=== PATIENT | male | born 1955 | race Caucasian/White ===

== ENCOUNTER → 2018-12-01 | Outpatient (CLI) | payer OTHER ==
[~2018-12-01] VITALS: Ht 188 cm; Wt 95.3 kg
[~2018-12-01] MED LIST: ASPIR 8181 MG PO; ELIQUIS5 MG PO; LIPITOR 20 MG T20 M1 PO; LISINOPRIL5 MG PO; PROTONIX40 M1 PO; TAMBOCOR 100 M100 M1 PO; VENTOLIN HFA 1818 GM INH
--- NOTE | 2018-12-01 08:19 | EKG ---
[address] [address] ELECTROCARDIOGRAM REPORT Name: ERICH ANDRES [facility]: [facility] [id number] Admission: 12/01/18 Attend Phys: Jed Gonzalez MD Discharge: Date of : 59 Report #: [id number] THIS REPORT FOR: //name// [facility] Test Date: 2018-12-01 Test Time: 07:01:23 Pat Name: ERICH ANDRES Department: Room: Gender: Biometry Teacher: RUI : 1955 Requested By: Jed Gonzalez Order Number: [id number] MD: Tee Bradley Measurements Intervals [place] Rate: 71 P: 52 MT: 185 QRS: -7 QRSD: 114 T: 60 QT: 410 QTc: 446 Interpretive Statements Sinus rhythm Normal tracing No previous ECG available for comparison Electronically Signed On 12-01-2018 8:19:39 TECHNICAL SALES SPECIALIST by Tee Bradley [email or web address] <ELECTRONICALLY SIGNED> By: Tee Bradley MD, [facility] 12/01/18 0819 0701 0701 Tee Bradley MD, FACC /EPI
--- NOTE | 2018-12-02 17:08 | PATH ---
[facility] [place] [address] PATHOLOGY RPT PROCEDURE Name: ERICH ANDRES Room #: REG Naima Saez.#: [id number] Admission: 12/01/18 Date of : 59 Discharge: Report #: [id number] Path Case #: [id number] [facility] Accession Number: [id number] . 01 Material submitted: . PART A: BIOPSY OF GASTRIC POLYPS PART B: BIOPSY OF QUESTIONABLE ISLANDS OF BARRETTS DISTAL ESOPHAGUS PART C: BIOPSY OF GE JUNCTION R/O BARRETTS . 01 Clinical history: . 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 02 Diagnosis: A. Polyps, gastric polyps, endoscopic biopsy: - Compatible with fundic gland polyps. - Negative for dysplasia. . B. Gastroesophageal mucosa, questionable islands of Ordonez's distal esophagus, endoscopic biopsy: - Moderate chronic inflammation. - Gastric-type mucosa along with squamous mucosa showing reactive changes. - Negative for intestinal metaplasia or dysplasia. . C. Gastric cardia-type mucosa, GE junction rule out Ordonez's, endoscopic biopsy: - Gastric cardia-type mucosa with marked acute and chronic inflammation. - Negative for Ordonez's metaplasia. - INDEFINITE FOR DYSPLASIA (PLEASE SEE COMMENT). - Mild to moderate chronic inflammation present in the background. LBQ/12/02/2018 . 02 Comment: Focal stratification, increased mitoses and rounded nuclei are identified. There; however, is no definite intestinal metaplasia present. Goblet cells are present consistent with reactive changes. The stratification is likely a reactive change as well. Please correlate clinically. . Dr. Harman Gomez has seen a entry level marketing representative slide of part C and concurs with my diagnosis. (IUV/db; 12/02/2018) . 02 Electronically signed: . Padmini Gonzalez MD, Pathologist NPI- [id number] [place] [address] PATHOLOGY RPT PROCEDURE Name: ERIHC ANDRES Room #: REG [facility].#: [id number] Admission: 12/01/18 Date of : 59 Discharge: Report #: [id number] Path Case #: [id number] . 01 Gross description: . A. The specimen is received in formalin, labeled "Erich Andres, biopsy of gastric polyps" and consists of multiple fragments of soft ayala tissue measuring 1.1 x 0.8 x 0.2 cm in aggregate which are entirely submitted in A1. . B. The specimen is received in formalin, labeled "Erich Andres, biopsy of questionable islands Ordonez's distal esophagus" and consists of 2 fragments of ozuna-ayala tissue measuring 0.4 x 0.3 x 0.1 cm and 0.3 x 0.2 x 0.2 cm. They are entirely submitted in B1. . C. The specimen is received in formalin, labeled "Erich Andres, BX GE junction" and consists of multiple fragments of soft ayala tissue measuring 1.2 x 0.3 x 0.2 cm in aggregate which are entirely submitted in C1. (SDY; 12/01/2018) SYU/SYU . 02 Pathologist provided ICD-10: K31.7, K20.9, K22.710 . 02 CPT . 261721, 229234, 013013 Specimen Comment: A courtesy copy of this report has been sent to Specimen Comment: [phone], , . Specimen Comment: Report sent to , and Performed at: [address] [facility], [place], [place] [id number] MD Kumar Breen MD Phone: [phone] Performed at: [address] [facility] [id number] MD Padmini Gonzalez MD Phone: [phone]
--- NOTE | 2018-12-03 05:38 | P ---
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 He presents today for surveillance examination, with last exam 3 years ago. PREOPERATIVE DIAGNOSES: History of Ordonez's and low-grade dysplasia. POSTOPERATIVE DIAGNOSES: 1. Moderate diffuse antral gastritis. 2. Multiple gastric polyps. 3. Small hiatus hernia, intermittently seen. 4. Questionable islands of Ordonez mucosa, distal esophagus. MEDICATIONS: Deep sedation with propofol per Anesthesia. SPECIMENS: 1. Biopsies of gastric polyps. 2. Biopsies of questionable islands of Ordonez mucosa, distal esophagus. 3. Biopsies of GE junction, rule out persistent Ordonez. ESTIMATED BLOOD LOSS: 3 mL. PROCEDURE: EGD with biopsy. FINDINGS: Prior to propofol sedation, procedure of upper endoscopy was reviewed with the patient as well as potential risks and its complications. He indicates he understands and desires to proceed. DESCRIPTION OF PROCEDURE: With the patient in left lateral decubitus position, the Olympus video endoscope was inserted in the cervical esophagus under direct vision without difficulty. Examination of this organ through its entire length revealed normal esophageal mucosa down to the squamocolumnar junction, a cm or two just above the squamocolumnar junction where 2 punctate possible Ordonez mucosa. These also may be areas of gastric mucosa. They were essentially removed with biopsy forceps. The distal esophagus, in particular the squamocolumnar junction, was carefully inspected with both white light as well as narrow band imaging. The squamocolumnar junction was at the top of the gastric folds. Intermittently, a small 1-2 cm sliding type hiatus hernia was seen. In addition, the mucosa was completely flat without ulcerations, nodules or mass lesions. Multiple biopsies were obtained along the squamocolumnar [address] [address] PROCEDURE REPORT Name: ERICH ANDRES Room #: REG [facility].#: [id number] Admission: 12/01/18 Attend Phys: Jed Gonzalez MD Discharge: Date of : 59 Report #: [id number] junction. The scope was advanced in the stomach, was examined on end view as well as retroflexed views. There was a moderate diffuse gastritis, which had been previously noted. No ulcers or erosions were seen. Upon retroflexion, no mass lesions were seen. However, in the body of the stomach were multiple polyps, some of which were about a centimeter or possibly slightly larger. These may be a result of his chronic use of PPIs. Multiple biopsies were obtained. They did have a typical and benign appearance. Pylorus is unremarkable. Duodenal bulb was unremarkable. Duodenal sweep down to the third portion was unremarkable. At that point, scope was slowly withdrawn and careful circumferential views confirmed the above findings. The patient tolerated the procedure well. CONDITION OF THE PATIENT UPON DISCHARGE: Following the procedure, the patient was drowsy, aroused. He will be discharged home when fully ambulatory. INSTRUCTIONS TO THE PATIENT AND FAMILY AT THE TIME OF DISCHARGE: We will follow up on the pathology. If there is Ordonez and in particular, if there is dysplasia, he may require further intervention. If no Ordonez is present, consider surveillance exam in 5 years. He will return to care of Dr. Dom Linares. Return to see me as needed. <ELECTRONICALLY SIGNED> By: Jed Gonzalez MD 12/03/18 0538 0758 0817 Jed Gonzalez MD /nt
== END | disposition home or self-care (01) ==
LOC: GI 06:35
DX: K29.50 Unspecified chronic gastritis without bleeding (principal); K31.7 Polyp of stomach and duodenum; K44.9 Diaphragmatic hernia without obstruction or gangrene; K20.9 Esophagitis, unspecified; K22.710 Barrett's esophagus with low grade dysplasia; K21.9 Gastro-esophageal reflux disease without esophagitis; J45.909 Unspecified asthma, uncomplicated; I10 Essential (primary) hypertension; I48.91 Unspecified atrial fibrillation; Z79.01 Long term (current) use of anticoagulants; Z98.890 Other specified postprocedural states; Z79.899 Other long term (current) drug therapy; Z88.2 Allergy status to sulfonamides; Z88.8 Allergy status to other drugs, medicaments and biological substances; Z79.82 Long term (current) use of aspirin
CPT/HCPCS: 62110; 62900